=== PATIENT | female | born 1970 | race Caucasian/White ===

== ENCOUNTER 2018-07-05 15:17 | Emergency (ER) | payer BC ==
[2018-07-05 15:30] VITALS: BP 157/82
--- NOTE | 2018-07-05 15:49 | UC ---
Eye Complaint HPI - HPI Summary HPI Summary: 48 y/o female presents to the urgent care c/o B/L eye redness and yellowish eye discharge since yesterday. This morning she woke up w/ some crusting yellowish drainage. Her was recently Dx w/ a severe pink eye. She has been w/ nasal congestion and nasal drainage for the past week. Pt request antibiotics since her because very severe suddenly. Pt denies eye pain, photophobia , [place], SOB, chest pain, abdominal pain, N/V/D. - History of Current Complaint Chief Complaint: UCEye Stated Complaint: RT EYE CONCERN Time Seen by Provider: 07/05/18 15:34 Hx Obtained From: Patient Hx Last Menstrual Period: Mirena IUD ?: No Onset/Duration: Gradual Onset, Lasting Days - 1 day, Still Present, Worse Since - today Timing: Constant Severity Initially: Mild Severity Currently: Mild Pain Intensity: 3 Pain Scale Used: 0-10 Numeric Location of Injury: Conjunctiva - B/L redness Aggravating Factor(s): Blinking Alleviating Factor(s): Nothing Associated Signs And Symptoms: Positive: Drainage (Purulent) - this morning. Negative: Photophobia, Drainage (Clear), Vision Impairment Bilateral, Fever, Swelling Related History: Other - her partner was recently Dx w/ pink eye by opthalmologist and it is very severe - Risk Factors Penetrating Injury Risk Factor: Negative Acute Glaucoma Risk Factors: Negative Optic Artery Occlusion Risk Factors: Negative - Allergies/Home Medications Allergies/Adverse Reactions: Allergies Allergy/AdvReac Type Severity Reaction Status Date / Time No Known Allergies Allergy Verified 07/05/18 15:30 PMH/Surg Hx/FS Hx/Imm Hx Previously Healthy: Yes - Pt denies PMHX - Surgical History Surgical History: Yes Surgery Procedure, Year, and Place: Gastric Bypass, 2010, [place] - Family History Known Family History: Positive: Hypertension, Other - Degenerative arthritis hips - Social History Occupation: Employed Full-time Lives: With Family Alcohol Use: Rare Substance Use Type: None Smoking Status (MU): Heavy Every Day Tobacco Smoker Type: Cigarettes Amount Used/How Often: 1/2-3/4 PPD Length of Time of Smoking/Using Tobacco: 35 Years Have You Smoked in the Last Year: Yes Household Exposure Type: Cigarettes - Immunization History Most Recent Influenza Vaccination: Not the 2015/2016 Season Review of Systems All Other Systems Reviewed And Are Negative: Yes Constitutional: Positive: Negative Skin: Positive: Negative Eyes: Positive: Drainage - yellowish, Eye Redness - B/L eye ENT: Positive: Nasal Discharge - yellowish Respiratory: Positive: Negative Cardiovascular: Positive: Negative Gastrointestinal: Positive: Negative Genitourinary: Positive: Negative Motor: Positive: Negative Neurovascular: Positive: Negative Musculoskeletal: Positive: Negative Neurological: Positive: Negative Psychological: Positive: Negative Is Patient Immunocompromised?: No Physical Exam - Summary Physical Exam Summary: Vital Signs Reviewed: Yes General: Well appearing, well nourished female in no apparent pain distress Eyes: Positive: B/L Conjunctiva Inflamed - Visual acuity: WNL,Visual moralez: full to confrontation. PERRLA, EOMI intact w/out limitation or complaint of pain. eyelashes w/ yellowish crusting and yellowish drainage observed. No ciliary flush. No chemosis, No photophobia. Normal fundoscopic exam; no proptosis, exophthalmos, nystagmus. ENT: Positive: Normal ENT inspection, Hearing grossly normal, Pharynx normal, Nasal congestion, Nasal drainage - clear, TMs normal - B/L external ear canal clear , TM's WNL. Negative: Tonsillar swelling, Tonsillar exudate Neck: Positive: Supple, Nontender, No Lymphadenopathy Respiratory: Positive: Chest nontender, Lungs clear, Normal breath sounds, No respiratory distress Cardiovascular: Positive: RRR, No Murmur, Pulses Normal, Brisk Capillary Refill Abdomen Description: Positive: Nontender, No Organomegaly, Soft. Negative: CVA Tenderness (R), CVA Tenderness (L) Bowel Sounds: Positive: Present Musculoskeletal: Positive: Strength Intact, ROM Intact, No Edema Neurological Exam: Normal Psychological Exam: Normal Skin Exam: Normal Triage Information Reviewed: Yes Vital Signs: Initial Vital Signs Temp 99.6 F 07/05/18 15:26 Pulse 91 07/05/18 15:26 Resp 16 07/05/18 15:26 BP 157/82 07/05/18 15:26 Pulse Ox 98 07/05/18 15:26 Eye Complaint Course/Dx - Course Course Of Treatment: 48 y/o female presents to the urgent care c/o B/L eye redness and yellowish eye discharge since yesterday. This morning she woke up w / some crusting yellowish drainage. Her was recently Dx w/ a severe pink eye. She has been w/ nasal congestion and nasal drainage for the past week. Pt request antibiotics since her because very severe suddenly. Pt denies eye pain, photophobia, [place], SOB, chest pain, abdominal pain, N/V/D.Hx obtained. B/L PERRLA, EOMI, fundi grossly normal, B/L conjunctiva injected with yellowish eye discharge. No tenderness on palpation, B/L eyelid with mild swelling. Pt Rx Polymix/trimetro. ophthalmic ointment for his bacterial conjunctivitis. Pt instructed to encourage hand washing to avoid spread and if symptoms do not improve, advised to return to f/u with PCP or Ophtalmologist DR Mayo for further evaluation and treatment. Pt's BP is elevated today advised to decrease salt in diet, monitor BP and f/u with PCP for further management. Pt understood and agreed w/ plan of care. - Differential Dx/Diagnosis Differential Diagnosis/HQI/PQRI: Conjunctivitis, Periorbital Cellulitis, Uveitis Provider Diagnosis: Acute bacterial conjunctivitis of both eyes, Elevated BP without diagnosis of hypertension Discharge - Sign-Out/Discharge Documenting (check all that apply): Patient Departure - D/c home All imaging exams completed and their final reports reviewed: No Studies - Discharge Plan Condition: Stable Disposition: HOME Prescriptions: Polymyx/Trimethoprim OPTH* [Polytrim OPHTH*] 1 drop BOTH EYES Q3H #1 btl Patient Education Materials: Low-Sodium Diet (ED), Conjunctivitis (ED) Referrals: [facility] [place] [facility] [Outside] - 3 Days Mara Mayo MD [Medical Doctor] - If Needed Additional Instructions: 1-Please apply ophthalmic drops as instructed and finish the full course of treatment to avoid recurrent infection. 2-If you do not improve or if symptoms worsen please f/u with sports official DR Mayo or your PCP for further evaluation and treatment 3- Your BP is elevated today. please decrease salt in your diet, monitor BP and if it continues to be elevated please f/u with your PCP for further management - Billing Disposition and Condition Condition: STABLE Disposition: Home
== END 2018-07-05 16:09 | disposition home or self-care (01) ==
LOC: UCCORT 15:17
DX: H10.33 Unspecified acute conjunctivitis, bilateral (principal); R03.0 Elevated blood-pressure reading, without diagnosis of hypertension; F17.210 Nicotine dependence, cigarettes, uncomplicated
CPT/HCPCS: 99212; G0463

== ENCOUNTER 2018-08-24 10:21 | Emergency (ER) | payer BC ==
[2018-08-24 10:47] VITALS: BP 149/91
--- NOTE | 2018-08-24 11:03 | UC ---
Eye Complaint HPI - HPI Summary HPI Summary: left eye redness x 1 day + yellow discharge , no eye pain , no change in vision no cold symptoms - History of Current Complaint Chief Complaint: UCEye Stated Complaint: B/L EYE COMPLAINT Time Seen by Provider: 08/24/18 10:55 Hx Obtained From: Patient Hx Last Menstrual Period: mirena Onset/Duration: Gradual Onset, Lasting Days - 1, Still Present Timing: Constant Severity Initially: Moderate Severity Currently: Moderate Pain Intensity: 0 Location of Injury: Conjunctiva - left Aggravating Factor(s): Blinking Alleviating Factor(s): Nothing Associated Signs And Symptoms: Positive: Drainage (Clear), Drainage (Purulent) - left, Swelling - left eye. Negative: Photophobia, Vision Impairment Bilateral , Vision Impairment Right, Vision Impairment Left, Fever Related History: Similar Episode, Diagnosed As: - conjunctivitis - Allergies/Home Medications Allergies/Adverse Reactions: Allergies Allergy/AdvReac Type Severity Reaction Status Date / Time No Known Allergies Allergy Verified 08/24/18 10:40 PMH/Surg Hx/FS Hx/Imm Hx Previously Healthy: Yes - Surgical History Surgical History: Yes Surgery Procedure, Year, and Place: Gastric Bypass, 2010, [place] - Family History Known Family History: Positive: Hypertension, Other - Degenerative arthritis hips - Social History Alcohol Use: Occasionally Substance Use Type: None Smoking Status (MU): Heavy Every Day Tobacco Smoker Type: Cigarettes Amount Used/How Often: 1/2-3/4 PPD Length of Time of Smoking/Using Tobacco: 35 Years Have You Smoked in the Last Year: Yes Household Exposure Type: Cigarettes - Immunization History Most Recent Influenza Vaccination: Not the Season Review of Systems All Other Systems Reviewed And Are Negative: Yes Constitutional: Positive: Negative Skin: Positive: Negative Eyes: Positive: Drainage, Eye Redness ENT: Positive: Negative Respiratory: Positive: Negative Cardiovascular: Positive: Negative Gastrointestinal: Positive: Negative Is Patient Immunocompromised?: No Physical Exam Triage Information Reviewed: Yes Appearance: Well-Appearing, No Pain Distress, Well-Nourished Vital Signs: Initial Vital Signs Temp 99.1 F 08/24/18 10:40 Pulse 103 08/24/18 10:40 Resp 15 08/24/18 10:40 BP 149/91 08/24/18 10:40 Pulse Ox 99 08/24/18 10:40 Vital Signs Reviewed: Yes Eye Exam: Normal Eyes: Positive: Conjunctiva Inflamed - left eye, Discharge - left eye ENT: Positive: Normal ENT inspection, Hearing grossly normal, Pharynx normal Neck: Positive: Supple, Nontender, No Lymphadenopathy Respiratory: Positive: Chest non-tender, Lungs clear, Normal breath sounds Cardiovascular: Positive: RRR, No Murmur, Pulses Normal Skin Exam: Normal Eye Complaint Course/Dx - Differential Dx/Diagnosis Provider Diagnosis: Conjunctivitis Discharge - Sign-Out/Discharge Documenting (check all that apply): Patient Departure All imaging exams completed and their final reports reviewed: No Studies - Discharge Plan Condition: Stable Disposition: HOME Prescriptions: Tobramycin 0.3% OPHTH.KENDAL* 1 drop BOTH EYES Q4H #1 btl Patient Education Materials: Conjunctivitis (ED) Referrals: No Primary Care Phys,NOPCP [Primary Care Provider] - If Needed - Billing Disposition and Condition Condition: STABLE Disposition: Home
== END 2018-08-24 11:07 | disposition home or self-care (01) ==
LOC: UCCORT 10:21
DX: H10.9 Unspecified conjunctivitis (principal); F17.210 Nicotine dependence, cigarettes, uncomplicated
CPT/HCPCS: 99212; G0463